=== PATIENT | male | born 1990 | race Two or more races ===

== ENCOUNTER 2022-06-22 23:27 | Emergency (ER) | payer MEDICAID ==
[~2022-06-22] VITALS: Ht 175.3 cm; Wt 82.0 kg
[2022-06-22] MEDS ORDERED: IOHEXOL 350 MG/ML 100ML IJ ONE (23:37)
[2022-06-22] MEDS ORDERED: HYDROmorphone HCL 2 MG/ML VL/or syr IV ONE (23:45)
[2022-06-22] MEDS ORDERED: SODIUM CHLORIDE 0.9% 1,000 ML IV ONE (23:45)
[2022-06-22] MEDS ORDERED: ONDANSETRON HCL 4 MG/2 ML VIAL IV ONE (23:45)
[2022-06-23 00:42] LABS: Albumin 3.5 g/dL (3.4-5.0); BUN/Creatinine Ratio 21.9; Calcium 8.1 mg/dL (8.5-10.1); Potassium 3.4 mmol/L (3.5-5.1)
[2022-06-23 00:45] LABS: Bilirubin, Total 0.8 mg/dL (0.2-1.0); Total Protein 6.5 g/dL (6.4-8.2)
[2022-06-23] MEDS ORDERED: KETAMINE 50mg/ML 10ml Vial (500mg/10ml) IV ONE (00:45)
[2022-06-23 01:04] LABS: Basophils # (auto) 0 10 ^3/uL (0-0.2); Basophils % (auto) 0.2 % (0.0-2.0); Eosinophils # (auto) 0 10 ^3/uL (0-0.8); Eosinophils % (auto) 0.2 % (0.0-7.0); Hematocrit 42.1 % (41.0-53.0); Hemoglobin 14.5 g/dL (13.5-17.5); Lymphocytes # (auto) 0.9 10 ^3/uL (0.4-5.4); Lymphocytes % (auto) 6.9 % (10.0-50.0); Mean Corpuscular Hemoglobin 30.4 pg (28.0-32.0); Mean Corpuscular Hgb Conc. 34.3 g/dL (32.0-36.0); Mean Corpuscular Volume 88.4 fL (80.0-100.0); Monocytes # (auto) 0.9 10 ^3/uL (0-1.3); Monocytes % (auto) 7.1 % (0.0-12.0); Neutrophils # (auto) 11.4 10 ^3/uL (1.6-8.6); Neutrophils % (auto) 85.6 % (37.0-80.0); Red Blood Cells 4.77 10^6/uL (4.5-5.90); White Blood Cell 13.4 10^3/uL (4.4-10.8)
[2022-06-23 01:11] VITALS: BP 140/92
[2022-06-23 01:11] LABS: INR 1.05 (0.9-1.15)
== END 2022-06-23 02:36 | disposition short-term general hospital (02) ==
LOC: ER 23:27
DX: J93.9 Pneumothorax, unspecified (principal); S00.12XA Contusion of left eyelid and periocular area, initial encounter; S31.131A Puncture wound of abdominal wall without foreign body, left upper quadrant without penetration into peritoneal cavity, initial encounter; S41.032A Puncture wound without foreign body of left shoulder, initial encounter; Y08.89XA Assault by other specified means, initial encounter; Y93.89 Activity, other specified; Y92.89 Other specified places as the place of occurrence of the external cause; Y99.8 Other external cause status
CPT/HCPCS: 32551; 36415; 70450; 70486; 71045; 71260; 72125; 74177; 80053; 85025; 85610; 85730; 86850; 86900; 86901; 96361; 96374; 96375; 99291; J1170; J2405; J7030; Q9967; 32556; 36556; 99152